=== PATIENT | male | born 1995 | race Caucasian/White ===

== ENCOUNTER 2022-08-12 17:06 | Outpatient (REF) | payer MEDICAID, SELFPAY ==
[2022-08-12 19:29] LABS: CDiff Gene PCR NEGATIVE (Negative)
== END 2022-08-12 17:07 | disposition home or self-care (01) ==
LOC: HO.WMHL 17:06
PROVIDERS: Visit Provider Nurse Practitioner Acute Care
DX: R19.7 Diarrhea, unspecified (principal); R50.9 Fever, unspecified
CPT/HCPCS: 87493

== ENCOUNTER 2022-09-21 19:00 | Outpatient (REF) | payer SELFPAY | END 2022-09-21 19:01 | disposition home or self-care (01) | LOC: HO.LNP 19:00 | PROVIDERS: Visit Provider Nurse Practitioner | DX: R82.90 Unspecified abnormal findings in urine (principal); R69 Illness, unspecified | CPT/HCPCS: 81001; 81003; 87086; 87088; 87186 ==